=== PATIENT | female | born 1985 | race Caucasian/White ===

== ENCOUNTER 2019-01-21 18:28 | Emergency (ER) | payer MEDICAID ==
[~2019-01-21] VITALS: Ht 175.3 cm; Wt 106.8 kg
[2019-01-21 18:35] VITALS: Ht 175.3 cm; Wt 106.8 kg
[2019-01-21 20:37] VITALS: BP 132/81
== END 2019-01-21 20:37 | disposition home or self-care (01) ==
LOC: D.ER 18:28
DX: S90.32XA Contusion of left foot, initial encounter (principal); W20.8XXA Other cause of strike by thrown, projected or falling object, initial encounter; Y93.89 Activity, other specified; Y92.89 Other specified places as the place of occurrence of the external cause

== ENCOUNTER 2019-05-12 09:50 | Emergency (ER) | payer MEDICAID ==
[~2019-05-12] VITALS: Ht 175.3 cm; Wt 111.4 kg
[2019-05-12 10:20] LABS: APPEARANCE CLEAR (CLEAR); BILIRUBIN NEGATIVE (NEGATIVE); COLOR YELLOW (YELLOW); GLUCOSE NEGATIVE (NEGATIVE); KETONE NEGATIVE (NEGATIVE); NITRITE NEGATIVE (NEGATIVE); PROTEIN NEGATIVE (NEGATIVE); SPECIFIC GRAVITY 1.025 (1.005-1.020); UROBILINOGEN NORMAL (NORMAL)
--- NOTE | 2019-05-12 10:20 | NUR ---
DR. NOBLES NOTIFIED AND SITTER ORDERED. SITTER AT BEDSIDE. NOTIFIED CHARGE NURSE AND ATTENDING IN REGARDS TO ASSESSMENT FINDINGS. RESOURCES GIVEN TO PT AND SAFETY PLAN INITIATED.
[2019-05-12 10:25] LABS: UDS - AMPHET NEGATIVE QUAL (NEGATIVE); UDS - BARB NEGATIVE QUAL (NEGATIVE); UDS - BENZO NEGATIVE QUAL (NEGATIVE); UDS - COCAINE NEGATIVE QUAL (NEGATIVE); UDS - OPIATE NEGATIVE QUAL (NEGATIVE); UDS - PCP NEGATIVE QUAL (NEGATIVE); UDS - THC NEGATIVE QUAL (NEGATIVE)
[2019-05-12 10:36] LABS: BASOPHILS 0.5 % (0-2); EOSINOPHILS 2.7 % (0-7); HEMATOCRIT 45.7 % (36.0-48.0); HEMOGLOBIN 16.1 g/dL (12-16); IMMATURE GRANULOCYTES 0.4 % (0-5); LYMPHOCYTES 35.5 % (15-50); MCH 32.9 pg (26.0-34.0); MCHC 35.2 g/dL (31.0-37.0); MCV 93.3 fL (80.0-100.0); MEAN PLATELET VOLUME 10.8 fL (7.4-10.4); MONOCYTES 5.5 % (2-11); NEUTROPHILS 55.4 % (40-80); PLATELET COUNT 295 10x3/uL (130-400); RDW 12.6 % (11.5-14.5); WBC 8.3 10x3/uL (4.8-10.8)
[2019-05-12 10:50] LABS: ANION GAP 14.6 mmol/L (8-16); BILIRUBIN - TOTAL 0.45 mg/dL (0.2-1.3); CALCIUM 9.2 mg/dL (8.5-10.1); CARBON DIOXIDE 25.4 mmol/L (21.0-32.0); CREATININE - SERUM 1.1 mg/dL (0.6-1.3); PROTEIN - SERUM 7.7 g/dL (6.4-8.2)
== END 2019-05-12 22:07 ==
LOC: D.ER 09:50
PROVIDERS: Emergency Medicine
DX: R45.851 Suicidal ideations (principal); F32.9 Major depressive disorder, single episode, unspecified; F17.210 Nicotine dependence, cigarettes, uncomplicated

== ENCOUNTER 2020-10-11 14:12 | Emergency (ER) | payer OTHER ==
[~2020-10-11] VITALS: Ht 175.3 cm; Wt 113.6 kg
[2020-10-11 14:16] VITALS: Ht 175.3 cm; Wt 113.6 kg
[2020-10-11 14:48] LABS: BASOPHILS 0.2 % (0-2); EOSINOPHILS 1.5 % (0-7); HEMATOCRIT 44.8 % (36.0-48.0); HEMOGLOBIN 15.4 g/dL (12-16); IMMATURE GRANULOCYTES 0.1 % (0-5); LYMPHOCYTE ABS# 3.69 10x3/uL (1.18-3.74); LYMPHOCYTES 38.5 % (15-50); MCH 32.2 pg (26.0-34.0); MCHC 34.4 g/dL (31.0-37.0); MCV 93.7 fL (80.0-100.0); MEAN PLATELET VOLUME 10.5 fL (7.4-10.4); MONOCYTES 3.6 % (2-11); NEUTROPHIL ABS# 5.38 10x3/uL (1.56-6.13); NEUTROPHILS 56.1 % (40-80); PLATELET COUNT 275 10x3/uL (130-400); RBC 4.78 10x6/uL (4.00-5.40); RDW 12.5 % (11.5-14.5); WBC 9.6 10x3/uL (4.8-10.8)
[2020-10-11 14:59] LABS: INR 0.96 (0.85-1.17); PROTIME 11.9 SECONDS (11.6-15.0)
[2020-10-11 15:00] LABS: APTT 28.4 SECONDS (22.8-39.4); CALC OSMOLALITY 278 mosm/kg (275-300); CALCIUM 8.9 mg/dL (8.5-10.1); CARBON DIOXIDE 30.4 mmol/L (21.0-32.0); CHLORIDE - SERUM 104 mmol/L (98-107); CREATININE - SERUM 1.1 mg/dL (0.6-1.3); GLUCOSE 95 mg/dL (74-106); POTASSIUM - SERUM 4.3 mmol/L (3.5-5.1); SODIUM 140 mmol/L (136-145); UREA NITROGEN 12 mg/dL (7-18); eGFR NON AFRICAN AMERICAN 60 mL/min (90-120)
[2020-10-11 15:16] LABS: ALBUMIN 3.9 g/dL (3.4-5.0); ALKALINE PHOSPHATASE 60 U/L (30-120); ALT (SGPT) 28 U/L (10-68); BILIRUBIN - TOTAL 0.22 mg/dL (0.2-1.3); CKMB 0.5 U/L (0.0-3.6); CREATINE KINASE 92 UL (21-215); PROTEIN - SERUM 7.4 g/dL (6.4-8.2)
[2020-10-11 15:18] LABS: TROPONIN-I < 0.017 ng/mL (0.000-0.060)
[2020-10-11] MEDS ORDERED: IBUPROFEN800 MG PO (15:31)
[2020-10-11] MEDS ORDERED: CYCLOBENZAPRINE10 MG PO (15:31)
[2020-10-11] MEDS ORDERED: ACETAMINOPHEN500 M1 PO (15:31)
[2020-10-11 15:51] VITALS: BP 142/71
== END 2020-10-11 16:01 | disposition home or self-care (01) ==
LOC: D.ER 14:12
PROVIDERS: Family Medicine
DX: M54.6 Pain in thoracic spine (principal); M54.5 Low back pain; M79.10 Myalgia, unspecified site; T14.8XXA Other injury of unspecified body region, initial encounter